=== PATIENT | female | born 1960 | race African-American/Black ===

== ENCOUNTER 2016-07-20 12:43 | Inpatient (IN) | payer OTHER ==
[2016-07-20 13:19] VITALS: BMI 39.6
--- NOTE | 2016-07-20 15:15 | HP ---
CIWA Score - CIWA Score Nausea/Vomitin-Mild Nausea/No Vomiting Muscle Tremors: 4-Moderate,w/Arms Extend Anxiety: 4-Mod. Anxious/Guarded Agitation: 4-Moderately Restless Paroxysmal Sweats: 3 Orientation: 0-Oriented Tacttile Disturbances: 0-None Auditory Disturbances: 0-None Visual Disturbances: 0-None Headache: 0-None Present CIWA-Ar Total Score: 16 Admission ROS [facility]HS - HPI Chief Complaint: I need to be here for detox. Allergies/Adverse Reactions: Allergies Allergy/AdvReac Type Severity Reaction Status Date / Time No Known Allergies Allergy Verified 07/20/16 15:10 History of Present Illness: pt is a 56yr old female with a history of alcohol dependence seeking detox for treatment. Exam Limitations: No Limitations - Ebola screening Have you traveled outside of the country in the last 21 days: No Have you had contact with anyone from an Ebola affected area: No Have you been sick,other than usual withdrawal symptoms: No Do you have a fever: No - Review of Systems Constitutional: Chills, Diaphoresis, Night Sweats, Changes in sleep, Unintentional Wgt. Loss EENT: reports: Other (slightly deaf right ear.) Respiratory: reports: No Symptoms reported Cardiac: reports: Lightheadedness, Syncope GI: reports: Diarrhea, Poor Appetite, Poor Fluid Intake Musculoskeletal: reports: Back Pain, Joint Pain Integumentary: reports: No Symptoms Reported Neuro: reports: Headache, Tingling, Tremors Endocrine: reports: Excessive Sweating, Flushing, Intolerance to Cold, Intolerance to Heat Hematology: reports: No Symptoms Reported Psychiatric: reports: Judgement Intact, Mood/Affect Appropiate, Orientated x3, Agitated, Anxious Other Systems: Reviewed and Negative Patient History - Patient Medical History Hx Anemia: Yes (sometimes takes iron) Hx Asthma: Yes Hx Chronic Obstructive Pulmonary Disease (COPD): Yes Hx Cancer: Yes (cervical CA hysterectomy 2002.) Hx Cardiac Disorders: No Hx Congestive Heart Failure: No Hx Hypertension: Yes Hx Hypercholesterolemia: No Hx Pacemaker: No HX Cerebrovascular Accident: Yes (mini stroke no residual last one 2yrs ago.) Hx Seizures: No Hx Dementia: No Hx Diabetes: No Hx Gastrointestinal Disorders: No Hx Liver Disease: No Hx Genitourinary Disorders: No Hx Sexually Transmitted Disorders: Yes (herpes no longer taking medication) Hx Renal Disease (ESRD): No Hx Thyroid Disease: No Hx Human Immunodeficiency Virus (HIV): Yes (diagnosed 1987, currently taking medication) Hx Hepatitis C: No Hx Depression: Yes Hx Suicide Attempt: No Hx Bipolar Disorder: No Hx Schizophrenia: No - Patient Surgical History Past Surgical History: Yes Hx Neurologic Surgery: No Hx Cataract Extraction: No Hx Cardiac Surgery: No Hx Lung Surgery: No Hx Breast Surgery: Yes (cysts removed from lt [id number]) Hx Breast Biopsy: No Hx Abdominal Surgery: Yes (hysterectomy-2002) Hx Appendectomy: No Hx Cholecystectomy: No Hx Genitourinary Surgery: No Hx Section: No Hx Orthopedic Surgery: No Anesthesia Reaction: No - PPD History Previous Implant?: Yes Documented Results: Negative w/o proof Implanted On Prior R Admission?: No PPD to be Administered?: Yes - Reproductive History Patient is a Female of Child Bearing Age (11 -55 yrs old): No - Smoking Cessation Smoking history: Current every day smoker Aproximately how many cigarettes per day: 30 Hx Chewing Tobacco Use: No Initiated information on smoking cessation: Yes 'Breaking Loose' booklet given: 07/20/16 - Substance & Tx. History Hx Alcohol Use: Yes Hx Substance Use: No Substance Use Type: Alcohol Hx Substance Use Treatment: Yes - Substances Abused Alcohol Route: Oral Frequency: Daily Amount used: Vodka(1 liter) Age of first use: 12 Date of Last Use: 07/20/16 Family Disease History - Family Disease History Family Disease History: Heart Disease: Father (cardiac ), CA: Mother ( pancreatic ca ) Admission Physical Exam BHS - Vital Signs Vital Signs: Vital Signs - 24 hr 07/20/16 13:14 Temperature 97 F L Pulse Rate 81 Respiratory 20 Rate Blood Pressure 149/96 - Physical General Appearance: Yes: Appropriately Dressed, Moderate Distress, Obese, Tremorous, Irritable, Sweating, Anxious HEENTM: Yes: Normal Voice, Nasal Congestion Respiratory: Yes: Lungs Clear, Normal Breath Sounds, No Respiratory Distress Neck: Yes: No masses,lesions,Nodules Breast: Yes: Within Normal Limits Cardiology: Yes: Regular Rhythm, Regular Rate, S1, S2 Abdominal: Yes: Normal Bowel Sounds, Non Tender, Soft Genitourinary: Yes: Within Normal Limits Back: Yes: Normal Inspection Musculoskeletal: Yes: full range of Motion, Gait Steady, Back pain Extremities: Yes: Normal Capillary Refill, Normal Inspection, Non-Tender, Tremors Neurological: Yes: Fully Oriented, Alert, Normal Response Integumentary: Yes: Normal Color, Diaphoresis Lymphatic: Yes: Within Normal Limits - Diagnostic (1) Alcohol dependence with uncomplicated withdrawal Current Visit: Yes Status: Chronic (2) Hypertension Current Visit: Yes Status: Chronic Qualifiers: Hypertension type: essential hypertension Qualified Code(s): I10 - Essential (primary) hypertension (3) HIV disease Current Visit: Yes Status: Chronic Comment: currently taking her medication. pt brought her own meds/pre-packaged (4) Nicotine dependence Current Visit: Yes Status: Chronic Qualifiers: Nicotine product type: cigarettes Substance use status: uncomplicated Qualified Code(s): F17.210 - Nicotine dependence, cigarettes, uncomplicated (5) Asthma with COPD Current Visit: Yes Status: Chronic (6) Depression Current Visit: Yes Status: Acute Cleared for Admission S - Detox or Rehab [facility] Level of Care: Medically Managed Detox Regimen/Protocol: Librium S Breath Alcohol Content Breath Alcohol Content: 0.002 Urine Pregancy Test - Result Urine Test Results: Negative- NO Line Present Urine Drug Screen - Results Drug Screen Negative: Yes
[2016-07-20] MEDS ORDERED: MAG HYDROX/AL HYDROX/SIMETH 30 ML UNIT-DOSE CUP PO PRN (15:22)
[2016-07-20] MEDS ORDERED: MAGNESIUM CITRATE 300 ML BOTTLE PO PRN (15:22)
[2016-07-20] MEDS ORDERED: guaiFENesin/D-METHORPHAN HB 10 ML UNIT-DOSE CUPS PO PRN (15:22)
[2016-07-20] MEDS ORDERED: diphenhydrAMINE HCL 50 MG CAPSULE PO PRN (15:22)
[2016-07-20] MEDS ORDERED: P-EPHED 60MG/TRIPROLIDI 2.5MG TABLET PO PRN (15:22)
[2016-07-20] MEDS ORDERED: MENTHOL/PHENOL 1 EACH UD MM PRN (15:22)
[2016-07-20] MEDS ORDERED: LOPERAMIDE HCL 2 MG CAPSULE PO PRN (15:22)
[2016-07-20] MEDS ORDERED: chlordiazePOXIDE HCL 25 MG CAPSULE PO PRN (15:22)
[2016-07-20] MEDS ORDERED: IBUPROFEN 400 MG TABLET (FP) PO PRN (15:22)
[2016-07-20] MEDS ORDERED: hydrOXYzine PAMOATE 50 MG CAPSULE (FP) PO PRN (15:22)
[2016-07-20] MEDS ORDERED: chlordiazePOXIDE HCL 25 MG CAPSULE PO ONE (17:45)
[2016-07-20] MEDS: chlordiazePOXIDE HCL 25 MG CAPSULE PO SCH ×2 (17:55→23:27)
[2016-07-20] MEDS: THIAMINE HCL 100 MG TABLET (FP) PO SCH (23:27)
[2016-07-20] MEDS: BUDESONIDE/FORMETEROL FUMARATE 80/4.5 mcg INHALER IH SCH (23:33)
[2016-07-20] MEDS: ACLIDINIUM BROMIDE 400 MCG/INH AERO.POWD IH SCH (23:33)
[2016-07-20] MEDS: ACETAMINOPHEN 325 MG TABLET (FP) PO PRN (23:34)
[2016-07-21] MEDS ORDERED: ALBUTEROL SO4 6.7 GM HFA INHALER IH PRN (02:13)
[2016-07-21] MEDS ORDERED: ALBUTEROL SO4 2.5/IPRATROPIUM 0.5 INH SOL 3 ML VIAL.NEB. NEB PRN (02:13)
[2016-07-21 05:30] LABS: URINE APPEARANCE SLCLOUDY; URINE BILIRUBIN NEGATIVE (NEGATIVE); URINE COLOR YELLOW; URINE GLUCOSE (UA) NEGATIVE (NEGATIVE); URINE KETONE NEGATIVE (NEGATIVE); URINE LEUK ESTERASE NEGATIVE (NEGATIVE); URINE NITRITE POSITIVE (NEGATIVE); URINE PROTEIN NEGATIVE (NEGATIVE); URINE UROBILINOGEN NEGATIVE E.U./dl (0.2-1.0)
[2016-07-21 05:37] LABS: URINE BLOOD 1+ (NEGATIVE)
[2016-07-21 05:39] LABS: URINE BACTERIA MANY /hpf (NONE SEEN); URINE MUCUS RARE; URINE RBC <1 /hpf (0-3); URINE WBC 4 /hpf (3-5)
[2016-07-21] MEDS: chlordiazePOXIDE HCL 25 MG CAPSULE PO SCH ×4 (07:19→22:33)
[2016-07-21] MEDS ORDERED: PATIENT'S OWN MEDICATION (NON-FORMULARY) (Atazanavir [Reyataz -] 300 MG) PO SCH (08:00)
[2016-07-21 10:33] LABS: MCH 33.1 pg (25.7-33.7); MCHC 34.1 g/dl (32.0-36.0); MEAN CELL VOLUME 97.2 fl (80-96); MEAN PLT VOLUME 11.6 fl (7.5-11.1); PLATELET COUNT 138 K/MM3 (134-434); RDW 13.9 % (11.6-15.6); WHITE BLOOD COUNT 6.9 K/mm3 (4.0-10.0)
[2016-07-21 11:05] LABS: ALBUMIN 3.3 g/dl (3.4-5.0); BILIRUBIN,TOTAL 1.1 mg/dL (0.2-1.0); CALCIUM 8.8 mg/dL (8.5-10.1); CREATININE 1.5 mg/dL (0.55-1.02); TOT PROT 9.1 g/dl (6.4-8.2)
[2016-07-21] MEDS: NICOTINE 21 MG/24 HOURS TOPICAL PATCH TD SCH (11:17)
[2016-07-21] MEDS: amLODIPine BESYLATE 10 MG TABLET (FP) PO SCH (11:17)
[2016-07-21] MEDS: LISINOPRIL 20 MG TABLET (FP) PO SCH (11:18)
[2016-07-21] MEDS: PRENATAL VITAMINS W/ FOLIC ACID TABLET (FP) PO SCH (11:18)
[2016-07-21] MEDS: BUDESONIDE/FORMETEROL FUMARATE 80/4.5 mcg INHALER IH SCH ×2 (11:18→22:33)
[2016-07-21] MEDS: RITONAVIR 100 MG TABLET PO SCH (11:19)
[2016-07-21] MEDS: PATIENT'S OWN MEDICATION (NON-FORMULARY) (Thiamine Mononitrate [Vitamin B-1] 100 MG) PO SCH (11:21)
[2016-07-21] MEDS: EMTRICITABINE 200MG/TENOFOVIR 300MG PO SCH (11:22)
[2016-07-21] MEDS: ACETAMINOPHEN 325 MG TABLET (FP) PO PRN (11:23)
[2016-07-21] MEDS: ACLIDINIUM BROMIDE 400 MCG/INH AERO.POWD IH SCH ×2 (11:24→22:33)
[2016-07-21] MEDS: ASPIRIN COATED 81 MG TABLET.EC PO SCH (11:27)
[2016-07-21] MEDS: HYDROCHLOROTHIAZIDE 25 MG TABLET (FP) PO SCH (11:27)
--- NOTE | 2016-07-21 11:28 | PN ---
S CIWA - CIWA Score Nausea/Vomitin Muscle Tremors: 3 Anxiety: 3 Agitation: 2 Paroxysmal Sweats: 1-Minimal Palms Moist Orientation: 0-Oriented Tacttile Disturbances: 1-Very Mild Itch/Numbness Auditory Disturbances: 1-Very Mild Visual Disturbances: 1-Very Mild Sensitivity Headache: 2-Mild CIWA-Ar Total Score: 17 BHS Progress Note (SOAP) Subjective: ALERT,IRRITABLE,ANXIOUS,INTERRUPTED SLEEP,TREMOR,PAIN IN RGHT FOOT PROGRESSIVELY WORSENIG FOR 3 DAYS Objective: 07/21/16 11:26 Vital Signs Temperature 97.7 F 07/21/16 10:00 Pulse Rate 60 07/21/16 10:00 Respiratory Rate 18 07/21/16 10:00 Blood Pressure 112/69 07/21/16 10:00 O2 Sat by Pulse Oximetry (%) EKG NSR,NORMAL ECG Assessment: 07/21/16 11:27 07/21/16 11:28 WITHDRAWAL SYMPTOM Plan: CONTINUE DETOX
[2016-07-21] MEDS: PATIENT'S OWN MEDICATION (NON-FORMULARY) (Atazanavir [Reyataz -] 300 MG) PO SCH (11:35)
--- NOTE | 2016-07-21 11:40 | PN ---
[facility] Progress Note Note: PATIENT FOUND BY HER ROOMMATE,STATED THAT PATIENT FELL OUT OF BED ON THE FLOOR ALERT,NO HEAD INJURY NO OBVIOUS INJURY NOTED PAINT IN RIGHT FOOT,PROBLEM OF WEIGHT BEARING NO DEFORMITY BOTH FEET PEDAL PULSE STRING NO CALF TENDERNESS SLIGHT SWELLING OF RIGHT FOOT NO HEAD INJURY IMPRESSION FALL HISTORY ALCOHOL DEPENDENCE WITH UNCOMPLICATED WITHDRAWAL HIV ASTHMA COPD DEPRESSION RENAL INSUFFICIENY R/O CIRRHOSIS BP 134/73,P76,R18,T97.5 TREATMENT INITIATE FALL PROTOCOL 1 TO ER FOR EVALUATION AND TREATMENT Laboratory Last Values WBC 6.9 K/mm3 (4.0-10.0) 07/21/16 08:00 RBC 4.56 M/mm3 (3.60-5.2) 07/21/16 08:00 Hgb 15.1 GM/dL (10.7-15.3) 07/21/16 08:00 Hct 44.3 % (32.4-45.2) 07/21/16 08:00 MCV 97.2 fl (80-96) H 07/21/16 08:00 MCHC 34.1 g/dl (32.0-36.0) 07/21/16 08:00 RDW 13.9 % (11.6-15.6) 07/21/16 08:00 Plt Count 138 K/MM3 (134-434) 07/21/16 08:00 MPV 11.6 fl (7.5-11.1) H 07/21/16 08:00 Sodium 137 mmol/L (136-145) 07/21/16 08:00 Potassium 3.3 mmol/L (3.5-5.1) L 07/21/16 08:00 Chloride 105 mmol/L (98-107) 07/21/16 08:00 Carbon Dioxide 26 mmol/L (21-32) 07/21/16 08:00 Anion Gap 6 (8-16) L 07/21/16 08:00 BUN 35 mg/dL (7-18) H 07/21/16 08:00 Creatinine 1.5 mg/dL (0.55-1.02) H 07/21/16 08:00 Creat Clearance w eGFR 35.67 (>60) 07/21/16 08:00 Random Glucose 95 mg/dL (74-106) 07/21/16 08:00 Calcium 8.8 mg/dL (8.5-10.1) 07/21/16 08:00 Total Bilirubin 1.1 mg/dL (0.2-1.0) H 07/21/16 08:00 AST 304 U/L (15-37) H 07/21/16 08:00 ALT 171 U/L (12-78) H 07/21/16 08:00 Alkaline Phosphatase 158 U/L (45-117) H 07/21/16 08:00 Total Protein 9.1 g/dl (6.4-8.2) H 07/21/16 08:00 Albumin 3.3 g/dl (3.4-5.0) L 07/21/16 08:00 Urine Color Yellow 07/20/16 22:13 Urine Appearance Slcloudy 07/20/16 22:13 Urine pH 5.0 (5.0-8.0) 07/20/16 22:13 Ur Specific [place] 1.014 (1.001-1.035) 07/20/16 22:13 Urine Protein Negative (NEGATIVE) 07/20/16 22:13 Urine Glucose (UA) Negative (NEGATIVE) 07/20/16 22:13 Urine Ketones Negative (NEGATIVE) 07/20/16 22:13 Urine Blood 1+ (NEGATIVE) H 07/20/16 22:13 Urine Nitrite Positive (NEGATIVE) 07/20/16 22:13 Urine Bilirubin Negative (NEGATIVE) 07/20/16 22:13 Urine Urobilinogen Negative E.U./dl (0.2-1.0) 07/20/16 22:13 Ur Leukocyte Esterase Negative (NEGATIVE) 07/20/16 22:13 Urine RBC <1 /hpf (0-3) 07/20/16 22:13 Urine WBC 4 /hpf (3-5) 07/20/16 22:13 Ur Epithelial Cells Rare /hpf (FEW) 07/20/16 22:13 Urine Bacteria Many /hpf (NONE SEEN) 07/20/16 22:13 Urine Mucus Rare 07/20/16 22:[address] GALLAGHER TRANSPORTED BY [facility]
--- NOTE | 2016-07-21 13:41 | CONSULT ---
[facility] Psychiatric Consult - Data Date of interview: 07/21/16 Admission source: [facility] Identifying data: First admission to [facility] for this 56 y/o AA female seeking detox treatnment on for alcohol dependence. Substance Abuse History: - Smoking Cessation. Smoking history: Current every day smoker. Aproximately how many cigarettes per day: 30. Hx Chewing Tobacco Use: No. Initiated information on smoking cessation: Yes. 'Breaking Loose' booklet given: 07/20/16. - Substance & Tx. History. Hx Alcohol Use: Yes. Hx Substance Use: No. Substance Use Type: Alcohol. Hx Substance Use Treatment: Yes. - Substances Abused. Alcohol. Route: Oral. Frequency: Daily. Amount used: Vodka(1 liter). Age of first use: 12. Date of Last Use: . Taken from [facility] report. Additional Comment: Attempt made to conduct a psychiatric evaluation.Plant Maintenance Mechanic is informed that the patient has been taken to the emergency department at the [facility] for medical care after report of an accidental fall from bed.Psychiatric consult deferred.
--- NOTE | 2016-07-21 16:21 | EKG ---
Test Reason : Blood Pressure : / mmHG Vent. Rate : 073 BPM Atrial Rate : 073 BPM P-R Int : 140 ms QRS Dur : 092 ms QT Int : 414 ms P-R-T Axes : 072 047 048 degrees QTc Int : 456 ms NORMAL SINUS RHYTHM NORMAL ECG NO PREVIOUS ECGS AVAILABLE Confirmed by BERTRAND BOUDREAUX MD ([id number]) on 07/21/2016 4:21:05 PM Referred By: Delonte Garner Confirmed By:EBRTRAND BOUDREAUX MD
[2016-07-21] MEDS: THIAMINE HCL 100 MG TABLET (FP) PO SCH (22:33)
[2016-07-22] MEDS: chlordiazePOXIDE HCL 25 MG CAPSULE PO SCH ×2 (05:24→10:55)
--- NOTE | 2016-07-22 06:24 | PN ---
[facility] Progress Note Note: POTASSIUM NOTED 3.3 KCL 40 MEQ PO X 1 ORDERED REPEAT CMP TOMORROW
[2016-07-22] MEDS ORDERED: POTASSIUM CHLORIDE TABS 20 MEQ TABLET.ER (FP) PO ONE (07:00)
[2016-07-22 09:27] LABS: ALBUMIN 2.7 g/dl (3.4-5.0); CALCIUM 8.6 mg/dL (8.5-10.1); CREATININE 1.4 mg/dL (0.55-1.02)
[2016-07-22 09:29] LABS: BILIRUBIN,TOTAL 0.9 mg/dL (0.2-1.0); TOT PROT 7.6 g/dl (6.4-8.2)
[2016-07-22 09:35] LABS: INR 1.05 (0.82-1.09); PROTHROMBIN TIME (PATIENT) 11.6 SEC (9.98-11.88)
[2016-07-22] MEDS: NICOTINE POLACRILEX 4 MG GUM BC PRN ×3 (10:55→22:43)
[2016-07-22] MEDS: NICOTINE 21 MG/24 HOURS TOPICAL PATCH TD SCH (10:55)
[2016-07-22] MEDS: HYDROCHLOROTHIAZIDE 25 MG TABLET (FP) PO SCH (10:55)
[2016-07-22] MEDS: amLODIPine BESYLATE 10 MG TABLET (FP) PO SCH (10:55)
[2016-07-22] MEDS: ASPIRIN COATED 81 MG TABLET.EC PO SCH (10:55)
[2016-07-22] MEDS: PRENATAL VITAMINS W/ FOLIC ACID TABLET (FP) PO SCH (10:56)
[2016-07-22] MEDS: LISINOPRIL 20 MG TABLET (FP) PO SCH (10:56)
[2016-07-22] MEDS: BUDESONIDE/FORMETEROL FUMARATE 80/4.5 mcg INHALER IH SCH ×2 (10:58→22:43)
[2016-07-22] MEDS: ACLIDINIUM BROMIDE 400 MCG/INH AERO.POWD IH SCH ×2 (10:58→22:42)
[2016-07-22] MEDS: EMTRICITABINE 200MG/TENOFOVIR 300MG PO SCH (10:59)
[2016-07-22] MEDS: RITONAVIR 100 MG TABLET PO SCH (10:59)
[2016-07-22] MEDS: PATIENT'S OWN MEDICATION (NON-FORMULARY) (Thiamine Mononitrate [Vitamin B-1] 100 MG) PO SCH (10:59)
[2016-07-22] MEDS: PATIENT'S OWN MEDICATION (NON-FORMULARY) (Atazanavir [Reyataz -] 300 MG) PO SCH (11:00)
--- NOTE | 2016-07-22 13:48 | PN ---
S CIWA - CIWA Score Nausea/Vomitin Muscle Tremors: 3 Anxiety: 2 Agitation: 2 Paroxysmal Sweats: 1-Minimal Palms Moist Orientation: 0-Oriented Tacttile Disturbances: 1-Very Mild Itch/Numbness Auditory Disturbances: 1-Very Mild Visual Disturbances: 1-Very Mild Sensitivity Headache: 2-Mild CIWA-Ar Total Score: 16 S Progress Note (SOAP) Subjective: ALERT,IRRITABLE,ANXIOUS,INTERRUPTED SLEEP,TREMOR Objective: 07/22/16 13:46 Vital Signs Temperature 98.1 F 07/22/16 10:00 Pulse Rate 95 H 07/22/16 10:00 Respiratory Rate 18 07/22/16 10:00 Blood Pressure 122/69 07/22/16 10:00 O2 Sat by Pulse Oximetry (%) Laboratory Last Values WBC 6.9 K/mm3 (4.0-10.0) 07/21/16 08:00 RBC 4.56 M/mm3 (3.60-5.2) 07/21/16 08:00 Hgb 15.1 GM/dL (10.7-15.3) 07/21/16 08:00 Hct 44.3 % (32.4-45.2) 07/21/16 08:00 MCV 97.2 fl (80-96) H 07/21/16 08:00 MCHC 34.1 g/dl (32.0-36.0) 07/21/16 08:00 RDW 13.9 % (11.6-15.6) 07/21/16 08:00 Plt Count 138 K/MM3 (134-434) 07/21/16 08:00 MPV 11.6 fl (7.5-11.1) H 07/21/16 08:00 INR 1.05 (0.82-1.09) 07/22/16 07:20 Sodium 138 mmol/L (136-145) 07/22/16 07:20 Potassium 3.3 mmol/L (3.5-5.1) L 07/22/16 07:20 Chloride 106 mmol/L (98-107) 07/22/16 07:20 Carbon Dioxide 25 mmol/L (21-32) 07/22/16 07:20 Anion Gap 7 (8-16) L 07/22/16 07:20 BUN 31 mg/dL (7-18) H 07/22/16 07:20 Creatinine 1.4 mg/dL (0.55-1.02) H 07/22/16 07:20 Creat Clearance w eGFR 38.62 (>60) 07/22/16 07:20 Random Glucose 216 mg/dL (74-106) H D 07/22/16 07:20 Calcium 8.6 mg/dL (8.5-10.1) 07/22/16 07:20 Total Bilirubin 0.9 mg/dL (0.2-1.0) 07/22/16 07:20 AST 186 U/L (15-37) H D 07/22/16 07:20 ALT 138 U/L (12-78) H 07/22/16 07:20 Alkaline Phosphatase 133 U/L (45-117) H 07/22/16 07:20 Total Protein 7.6 g/dl (6.4-8.2) 07/22/16 07:20 Albumin 2.7 g/dl (3.4-5.0) L 07/22/16 07:20 Urine Color Yellow 07/20/16 22:13 Urine Appearance Slcloudy 07/20/16 22:13 Urine pH 5.0 (5.0-8.0) 07/20/16 22:13 Ur Specific [place] 1.014 (1.001-1.035) 07/20/16 22:13 Urine Protein Negative (NEGATIVE) 07/20/16 22:13 Urine Glucose (UA) Negative (NEGATIVE) 07/20/16 22:13 Urine Ketones Negative (NEGATIVE) 07/20/16 22:13 Urine Blood 1+ (NEGATIVE) H 07/20/16 22:13 Urine Nitrite Positive (NEGATIVE) 07/20/16 22:13 Urine Bilirubin Negative (NEGATIVE) 07/20/16 22:13 Urine Urobilinogen Negative E.U./dl (0.2-1.0) 07/20/16 22:13 Ur Leukocyte Esterase Negative (NEGATIVE) 07/20/16 22:13 Urine RBC <1 /hpf (0-3) 07/20/16 22:13 Urine WBC 4 /hpf (3-5) 07/20/16 22:13 Ur Epithelial Cells Rare /hpf (FEW) 07/20/16 22:13 Urine Bacteria Many /hpf (NONE SEEN) 07/20/16 22:13 Urine Mucus Rare 07/20/16 22:13 RPR Titer Nonreactive (NONREACTIVE) 07/21/16 08:00 Assessment: 07/22/16 13:47 WITHDRAWAL SYMPTOM Plan: CONTINUE DETOX,REPEAT CMP IN AM
[2016-07-22] MEDS: chlordiazePOXIDE 5 MG CAPSULE PO SCH ×2 (17:18→22:42)
[2016-07-22] MEDS: THIAMINE HCL 100 MG TABLET (FP) PO SCH (22:42)
[2016-07-22] MEDS: MAGNESIUM HYDROX 2400MG/30ML ORAL SUSPENSION 30 ML CUP PO PRN (23:34)
[2016-07-23] MEDS: chlordiazePOXIDE 5 MG CAPSULE PO SCH ×2 (06:54→10:55)
[2016-07-23] MEDS: NICOTINE POLACRILEX 4 MG GUM BC PRN ×4 (07:02→23:34)
[2016-07-23 09:57] LABS: ALBUMIN 2.7 g/dl (3.4-5.0); BILIRUBIN,TOTAL 0.7 mg/dL (0.2-1.0); CALCIUM 8.8 mg/dL (8.5-10.1); TOT PROT 7.9 g/dl (6.4-8.2)
[2016-07-23] MEDS: EMTRICITABINE 200MG/TENOFOVIR 300MG PO SCH (10:51)
[2016-07-23] MEDS: ASPIRIN COATED 81 MG TABLET.EC PO SCH (10:51)
[2016-07-23] MEDS: RITONAVIR 100 MG TABLET PO SCH (10:51)
[2016-07-23] MEDS: ACLIDINIUM BROMIDE 400 MCG/INH AERO.POWD IH SCH ×2 (10:51→22:56)
[2016-07-23] MEDS: BUDESONIDE/FORMETEROL FUMARATE 80/4.5 mcg INHALER IH SCH ×2 (10:52→22:56)
[2016-07-23] MEDS: amLODIPine BESYLATE 10 MG TABLET (FP) PO SCH (10:52)
[2016-07-23] MEDS: PRENATAL VITAMINS W/ FOLIC ACID TABLET (FP) PO SCH (10:52)
[2016-07-23] MEDS: HYDROCHLOROTHIAZIDE 25 MG TABLET (FP) PO SCH (10:52)
[2016-07-23] MEDS: PATIENT'S OWN MEDICATION (NON-FORMULARY) (Atazanavir [Reyataz -] 300 MG) PO SCH (10:53)
[2016-07-23] MEDS: NICOTINE 21 MG/24 HOURS TOPICAL PATCH TD SCH (10:53)
[2016-07-23] MEDS: LISINOPRIL 20 MG TABLET (FP) PO SCH (10:54)
[2016-07-23] MEDS: PATIENT'S OWN MEDICATION (NON-FORMULARY) (Thiamine Mononitrate [Vitamin B-1] 100 MG) PO SCH (10:55)
--- NOTE | 2016-07-23 14:00 | PN ---
S Progress Note (SOAP) Subjective: ALERT,IRRITABLE,ANXIOUS,INTERRUPTED SLEEP Objective: 07/23/16 13:59 Vital Signs Temperature 97.7 F 07/23/16 10:08 Pulse Rate 96 H 07/23/16 10:08 Respiratory Rate 16 07/23/16 10:08 Blood Pressure 126/81 07/23/16 10:08 O2 Sat by Pulse Oximetry (%) Laboratory Last Values WBC 6.9 K/mm3 (4.0-10.0) 07/21/16 08:00 RBC 4.56 M/mm3 (3.60-5.2) 07/21/16 08:00 Hgb 15.1 GM/dL (10.7-15.3) 07/21/16 08:00 Hct 44.3 % (32.4-45.2) 07/21/16 08:00 MCV 97.2 fl (80-96) H 07/21/16 08:00 MCHC 34.1 g/dl (32.0-36.0) 07/21/16 08:00 RDW 13.9 % (11.6-15.6) 07/21/16 08:00 Plt Count 138 K/MM3 (134-434) 07/21/16 08:00 MPV 11.6 fl (7.5-11.1) H 07/21/16 08:00 INR 1.05 (0.82-1.09) 07/22/16 07:20 Sodium 140 mmol/L (136-145) 07/23/16 08:00 Potassium 3.7 mmol/L (3.5-5.1) 07/23/16 08:00 Chloride 108 mmol/L (98-107) H 07/23/16 08:00 Carbon Dioxide 27 mmol/L (21-32) 07/23/16 08:00 Anion Gap 5 (8-16) L 07/23/16 08:00 BUN 24 mg/dL (7-18) H D 07/23/16 08:00 Creatinine 1.0 mg/dL (0.55-1.02) D 07/23/16 08:00 Creat Clearance w eGFR 56.95 (>60) 07/23/16 08:00 Random Glucose 128 mg/dL (74-106) H D 07/23/16 08:00 Calcium 8.8 mg/dL (8.5-10.1) 07/23/16 08:00 Total Bilirubin 0.7 mg/dL (0.2-1.0) D 07/23/16 08:00 AST 151 U/L (15-37) H 07/23/16 08:00 ALT 132 U/L (12-78) H 07/23/16 08:00 Alkaline Phosphatase 157 U/L (45-117) H 07/23/16 08:00 Total Protein 7.9 g/dl (6.4-8.2) 07/23/16 08:00 Albumin 2.7 g/dl (3.4-5.0) L 07/23/16 08:00 Urine Color Yellow 07/20/16 22:13 Urine Appearance Slcloudy 07/20/16 22:13 Urine pH 5.0 (5.0-8.0) 07/20/16 22:13 Ur Specific [place] 1.014 (1.001-1.035) 07/20/16 22:13 Urine Protein Negative (NEGATIVE) 07/20/16 22:13 Urine Glucose (UA) Negative (NEGATIVE) 07/20/16 22:13 Urine Ketones Negative (NEGATIVE) 07/20/16 22:13 Urine Blood 1+ (NEGATIVE) H 07/20/16 22:13 Urine Nitrite Positive (NEGATIVE) 07/20/16 22:13 Urine Bilirubin Negative (NEGATIVE) 07/20/16 22:13 Urine Urobilinogen Negative E.U./dl (0.2-1.0) 07/20/16 22:13 Ur Leukocyte Esterase Negative (NEGATIVE) 07/20/16 22:13 Urine RBC <1 /hpf (0-3) 07/20/16 22:13 Urine WBC 4 /hpf (3-5) 07/20/16 22:13 Ur Epithelial Cells Rare /hpf (FEW) 07/20/16 22:13 Urine Bacteria Many /hpf (NONE SEEN) 07/20/16 22:13 Urine Mucus Rare 07/20/16 22:13 RPR Titer Nonreactive (NONREACTIVE) 07/21/16 08:00 Assessment: 07/23/16 14:00 WITHDRAWAL SYMPTOM Plan: CONTINUE DETOX ,DISCHARGE IN AM
[2016-07-23] MEDS: MAGNESIUM HYDROX 2400MG/30ML ORAL SUSPENSION 30 ML CUP PO PRN (15:19)
[2016-07-23] MEDS: chlordiazePOXIDE HCL 10 MG CAPSULE PO SCH ×2 (18:20→22:56)
[2016-07-23] MEDS ORDERED: ASPIRIN COATED 81 MG TABLET.EC PO SCH (18:30)
[2016-07-23] MEDS ORDERED: PATIENT'S OWN MEDICATION (NON-FORMULARY) (Atazanavir [Reyataz -] 300 MG) PO SCH (18:30)
[2016-07-23] MEDS ORDERED: PATIENT'S OWN MEDICATION (NON-FORMULARY) (Thiamine Mononitrate [Vitamin B-1] 100 MG) PO SCH (18:31)
[2016-07-23] MEDS ORDERED: EMTRICITABINE 200MG/TENOFOVIR 300MG PO SCH (18:31)
[2016-07-23] MEDS ORDERED: RITONAVIR 100 MG TABLET PO SCH (18:32)
[2016-07-23] MEDS: THIAMINE HCL 100 MG TABLET (FP) PO SCH (22:56)
[2016-07-24] MEDS: chlordiazePOXIDE HCL 10 MG CAPSULE PO SCH (05:45)
--- NOTE | 2016-07-24 09:18 | DS ---
[facility] Detox Discharge Summary Admission Date: 07/20/16 Discharge Date: 07/24/16 - History Present History: Alcohol Dependence - Physical Exam Results Vital Signs: Vital Signs Temperature 97.5 F L 07/24/16 06:59 Pulse Rate 99 H 07/24/16 06:59 Respiratory Rate 20 07/24/16 06:59 Blood Pressure 121/92 07/24/16 06:59 O2 Sat by Pulse Oximetry (%) - Treatment Hospital Course: Detox Protocol Followed, Detoxed Safely, Responded well, Discharged Condition Good - Medication Discharge Medications: Ambulatory Orders Amlodipine Besylate [Norvasc -] 10 mg PO DAILY 07/20/16 Aspirin [ASA -] 81 mg PO DAILY 07/20/16 Atazanavir [Reyataz -] 300 mg PO DAILY 07/20/16 Budesonide/Formeterol Fumarate [SYMBICORT 80/4.5mcg -] 1 inh PO BID 07/20/16 Emtricitabine/Tenofovir (Tdf) [Truvada 200 mg-300 mg Tablet] 1 each PO DAILY Hydrochlorothiazide [Hctz -] 25 mg PO DAILY 07/20/16 Lisinopril [Prinivil] 20 mg PO DAILY 07/20/16 Nicotine Polacrilex [Nicotine Gum] 4 mg PO Q2H 07/20/16 Oxycodone HCl 30 mg PO BID 07/20/16 Ritonavir [Norvir -] 100 mg PO DAILY 07/20/16 Thiamine Mononitrate [Vitamin B-1] 100 mg PO DAILY 07/20/16 Tiotropium [place] [Spiriva] 18 mcg IH DAILY 07/20/16 - Diagnosis (1) Depression Current Visit: Yes Status: Chronic Qualifiers: Depression Type: unspecified Qualified Code(s): F32.9 - Major depressive disorder, single episode, unspecified (2) Alcohol dependence with uncomplicated withdrawal Current Visit: Yes Status: Chronic (3) Asthma with COPD Current Visit: Yes Status: Chronic (4) HIV disease Current Visit: Yes Status: Chronic (5) Hypertension Current Visit: Yes Status: Chronic Qualifiers: Hypertension type: essential hypertension Qualified Code(s): I10 - Essential (primary) hypertension (6) Nicotine dependence Current Visit: Yes Status: Chronic Qualifiers: Nicotine product type: cigarettes Substance use status: uncomplicated Qualified Code(s): F17.210 - Nicotine dependence, cigarettes, uncomplicated (7) Foot pain, right Current Visit: No Status: Acute - AMA Did Patient Leave Against Medical Advice: No
[2016-07-24] MEDS: ACLIDINIUM BROMIDE 400 MCG/INH AERO.POWD IH SCH (10:01)
[2016-07-24] MEDS: BUDESONIDE/FORMETEROL FUMARATE 80/4.5 mcg INHALER IH SCH (10:01)
[2016-07-24] MEDS: PRENATAL VITAMINS W/ FOLIC ACID TABLET (FP) PO SCH (10:03)
[2016-07-24] MEDS: HYDROCHLOROTHIAZIDE 25 MG TABLET (FP) PO SCH (10:03)
[2016-07-24] MEDS: LISINOPRIL 20 MG TABLET (FP) PO SCH (10:03)
[2016-07-24] MEDS: amLODIPine BESYLATE 10 MG TABLET (FP) PO SCH (10:03)
[2016-07-24] MEDS: NICOTINE POLACRILEX 4 MG GUM BC PRN (10:04)
[2016-07-24 10:24] VITALS: BP 135/92; PULSE 91; TEMP 99
== END 2016-07-24 10:30 | disposition home or self-care (01) | DRG 775 ==
LOC: YASAS 12:43 → Y6N 16:14
PROVIDERS: ADMIT Internal Medicine; ATTEND Internal Medicine
PROC: HZ2ZZZZ Detoxification Services for Substance Abuse Treatment (ICD-10-PCS; principal; 2016-07-20)
DX: F10.230 Alcohol dependence with withdrawal, uncomplicated (principal); F17.210 Nicotine dependence, cigarettes, uncomplicated; F32.9 Major depressive disorder, single episode, unspecified; E66.9 Obesity, unspecified; Z68.39 Body mass index [BMI] 39.0-39.9, adult; J45.909 Unspecified asthma, uncomplicated; J44.9 Chronic obstructive pulmonary disease, unspecified; Z21 Asymptomatic human immunodeficiency virus [HIV] infection status; I10 Essential (primary) hypertension; Z86.2 Personal history of diseases of the blood and blood-forming organs and certain disorders involving the immune mechanism; Z85.41 Personal history of malignant neoplasm of cervix uteri; Z90.710 Acquired absence of both cervix and uterus; Z86.73 Personal history of transient ischemic attack (TIA), and cerebral infarction without residual deficits; Z87.42 Personal history of other diseases of the female genital tract; M79.671 Pain in right foot; W06.XXXA Fall from bed, initial encounter; Y93.89 Activity, other specified; Y92.230 Patient room in hospital as the place of occurrence of the external cause
CPT/HCPCS: 36415; 80053; 81003; 81015; 85027; 85610; 86593; 93005; 93010

== ENCOUNTER 2016-07-21 12:52 | Emergency (ER) | payer OTHER ==
[2016-07-21 13:00] VITALS: TEMP 97.7; BMI 36.9
[2016-07-21] MEDS ORDERED: IBUPROFEN 400 MG TABLET (FP) PO ONE ×2 (14:03→14:11)
--- NOTE | 2016-07-21 14:15 | PDOC ---
History of Present Illness - General Chief Complaint: Pain Stated Complaint: FEET PAIN Time Seen by Provider: 07/21/16 13:51 History Source: Patient - History of Present Illness Occurred: reports: this afternoon Method of Injury: Yes: fall Past History - Past Medical History Allergies/Adverse Reactions: Allergies Allergy/AdvReac Type Severity Reaction Status Date / Time No Known Allergies Allergy Verified 07/21/16 13:00 Home Medications: Ambulatory Orders Amlodipine Besylate [Norvasc -] 10 mg PO DAILY 07/20/16 Aspirin [ASA -] 81 mg PO DAILY 07/20/16 Atazanavir [Reyataz -] 300 mg PO DAILY 07/20/16 Budesonide/Formeterol Fumarate [SYMBICORT 80/4.5mcg -] 1 inh PO BID 07/20/16 Emtricitabine/Tenofovir (Tdf) [Truvada 200 mg-300 mg Tablet] 1 each PO DAILY Hydrochlorothiazide [Hctz -] 25 mg PO DAILY 07/20/16 Lisinopril [Prinivil] 20 mg PO DAILY 07/20/16 Nicotine Polacrilex [Nicotine Gum] 4 mg PO Q2H 07/20/16 Oxycodone HCl 30 mg PO BID 07/20/16 Ritonavir [Norvir -] 100 mg PO DAILY 07/20/16 Thiamine Mononitrate [Vitamin B-1] 100 mg PO DAILY 07/20/16 Tiotropium [place] [Spiriva] 18 mcg IH DAILY 07/20/16 Anemia: Yes (sometimes takes iron) Asthma: Yes Cancer: Yes (cervical CA hysterectomy 2002.) Cardiac Disorders: No CVA: Yes (mini stroke no residual last one 2yrs ago.) COPD: Yes CHF: No Dementia: No Diabetes: No GI Disorders: No Disorders: No HTN: Yes Hypercholesterolemia: No Kidney Stones: No Liver Disease: No Suicide Attempt (Hx): No Seizures: No Thyroid Disease: No - Surgical History Abdominal Surgery: Yes (hysterectomy-2002) Appendectomy: No Cardiac Surgery: No Cholecystectomy: No Lung Surgery: No Neurologic Surgery: No Orthopedic Surgery: No - Psycho/Social/Smoking Cessation Hx Anxiety: Yes Suicidal Ideation: No Smoking History: Never smoked Number of Cigarettes Smoked Daily: 30 'Breaking Loose' booklet given: 07/20/16 Hx Alcohol Use: Yes (VODKA) Drug/Substance Use Hx: No Substance Use Type: Alcohol Hx Substance Use Treatment: Yes Trauma Specific PMHX - Complaint Specific PMHX Arthritis: Yes Review of Systems - Review of Systems Respiratory: No: Cough, Shortness of Breath Cardiac (ROS): No: Chest Pain ABD/GI: No: Nausea, Vomiting Neurological: No: Headache, Dizziness *Physical Exam - Vital Signs Last Vital Signs Temp Pulse Resp BP Pulse Ox 97.7 F 59 L 20 109/69 94 L 07/21/16 12:56 07/21/16 12:56 07/21/16 12:56 07/21/16 12:56 07/21/16 12:56 - Physical Exam General Appearance: Yes: Appropriately Dressed. No: Apparent Distress HEENT: positive: Normal Voice Neck: positive: Supple Respiratory/Chest: positive: Lungs Clear, Normal Breath Sounds. negative: Respiratory Distress Cardiovascular: positive: Regular Rate, S1, S2 Gastrointestinal/Abdominal: negative: Tender, Soft Extremity: positive: Normal Inspection. negative: Tender, Swelling Integumentary: positive: Dry, Warm Neurologic: positive: Fully Oriented, Alert, Normal Mood/Affect Medical Decision Making - Medical Decision Making 07/21/16 14:07 56 yo F, h/o HIV on meds, CD4 in the 500s, unknown VL, HCV, COPD, HTN, ETOH abuse, currently in rehabilitation at [facility] and sent in for fall. Patient states she fell out of bed this afternoon but was aware while she was falling and was able to break her fall. Adamant that she did not hit her head and denies any injury since fall. Only complaint is pain to dorsum of right foot that's been going on for several days but actually improving as per patient. No fever or chills. Patient well-appearing and stable with unremarkable exam. Motrin given for foot pain. CTH ordered as per protocol. Anticipate sending back to facility 07/21/16 15:[address] head as she states "I did not hit my head" and does not want to be exposed to unnecessary radiation. ED attg aware and pt will be transported back to facility *DC/Admit/Observation/Transfer Diagnosis at time of Disposition: Foot pain, right Fall Qualifiers: Encounter type: initial encounter Qualified Code(s): W19.XXXA - Unspecified fall, initial encounter - Discharge Dispostion Disposition: I.P. ALCOHOL/SUBS ABUSE REHAB Condition at time of disposition: Good - Referrals Referrals: STAFF,NOT ON [Primary Care Provider] - - Patient Instructions Additional Instructions: Return for worsening of symptoms
[2016-07-21 15:49] VITALS: BP 108/63; PULSE 60
== END 2016-07-21 16:34 | disposition other institution (70) ==
LOC: JER 12:52
DX: F10.20 Alcohol dependence, uncomplicated (principal); W06.XXXA Fall from bed, initial encounter; Y93.89 Activity, other specified; Y92.230 Patient room in hospital as the place of occurrence of the external cause; I10 Essential (primary) hypertension; Z86.73 Personal history of transient ischemic attack (TIA), and cerebral infarction without residual deficits; B20 Human immunodeficiency virus [HIV] disease; Z85.41 Personal history of malignant neoplasm of cervix uteri; J45.909 Unspecified asthma, uncomplicated; F17.210 Nicotine dependence, cigarettes, uncomplicated
CPT/HCPCS: 99283-25